=== PATIENT | male | born 1995 | race Caucasian/White ===

== ENCOUNTER 2023-03-19 12:54 | Emergency (ER) | payer BC ==
[~2023-03-19] VITALS: Ht 162.6 cm; Wt 74.8 kg
[2023-03-19 13:01] VITALS: BP 123/66; PULSE 79; RESP 17; TEMP 97.6; O2SAT 98
[2023-03-19] MEDS ORDERED: IBUP-2213 PO (13:32)
[2023-03-19] MEDS ORDERED: PROM118S5 PO (13:32)
[2023-03-19] MEDS ORDERED: FAMO-347 PO (13:37)
[2023-03-19 13:43] VITALS: BP 122/80; PULSE 74; RESP 17; O2SAT 98
[2023-03-19 14:17] LABS: FLU A ANTIGEN negative (NEGATIVE)
[2023-03-19 14:18] LABS: FLU B ANTIGEN negative (NEGATIVE)
== END 2023-03-19 13:44 | disposition home or self-care (01) ==
LOC: MED 12:54
DX: J06.9 Acute upper respiratory infection, unspecified (principal); Z20.822 Contact with and (suspected) exposure to COVID-19
CPT/HCPCS: 99283